=== PATIENT | male | born 1960 | race Caucasian/White ===

== ENCOUNTER 2023-02-02 08:03 | Outpatient (CLI) | payer OTHER, SELFPAY ==
--- NOTE | 2023-02-02 08:15 | MR_ITS ---
[address] [address] Phone:?[phone] Fax:?[phone] Referring Physician Information: Ino Wilson M.D. [id number] [facility] [address] Phone:?[phone] Fax:?[phone] Patient:Eddie Sandhu D.O.B:?1960 Sex:?Male Phone:?[phone] [facility] MRN:?[id number] Exam Date:?02/02/2023 EXAM: MRI of the RIGHT KNEE, without contrast CLINICAL INFORMATION: Male, 63 years old, with medial right knee pain. INDICATION: Evaluate for meniscal tear. PRIOR SURGERY: None reported. PLAIN FILMS: Knee radiograph dated 01/11/2023. COMPARISONS: No prior MRIs available. TECHNICAL INFORMATION: Using a 1.5T MR scanner and a localizing surface coil: sagittals: PD, PDFS coronals: PD, T2FS axials: PD, PDFS SEDATION: None CONTRAST: None FINDINGS: Knee joint: Effusion: Trace right knee effusion. Popliteal cyst: Tiny, unruptured popliteal (Greenberg's) cyst. Loose bodies: None. Subcutaneous and extra-articular soft tissues: Moderate edema-like signal extends from the patella to the tibial tubercle (sagittal PDFS series 6 image 16). Ligaments: ACL: Intact ACL anteromedial and posterolateral bundles, without sprain or tear. PCL: Intact PCL, without acute or chronic injury. MCL: Intact MCL superficial and deep layers, without injury. LCL: Intact LCL, without injury. Posterolateral corner: No posterolateral corner soft tissue injury. Popliteus, biceps femoris, iliotibial band, popliteofibular ligament and lateral gastrocnemius are intact. Posteromedial corner: No posteromedial corner soft tissue injury. Semimembranosus, pes anserine tendons and posterior oblique ligament are without injury, tendinopathy or bursitis. Extensor mechanism: Patellar tendon: Intact, without tendinopathy. Quadriceps tendon: Intact, without tendinopathy. Retinacula: Medial and lateral retinacula are intact. Fat pads: Unremarkable infrapatellar Hoffa's, quadriceps and prefemoral fat pads. Medial compartment: Medial meniscus: Oblique horizontal undersurface tearing of the posterior horn and body measures 2.9 cm (sagittal PDFS series 6 images 20-24 and coronal STIR series 8 images 18-21). This is associated with cystic intrasubstance degeneration at the posterior horn/body junction. No meniscal extrusion or parameniscal cyst. Medial femoral condyle & tibial plateau: Mild signal heterogeneity, surface irregularity, and thinning of the articular cartilage without full-thickness chondral loss or reactive osseous changes. Lateral compartment: Lateral meniscus: No articular surface, meniscosynovial junction or root tear. No displacement, extrusion or parameniscal cyst. Lateral femoral condyle: No chondromalacia or osteochondral abnormality. Lateral tibial plateau: Approximately 1.0 x 1.9 cm area of grade II chondromalacia involving the posterior aspect of the lateral tibial plateau, without reactive osseous changes (sagittal PD series 5 image 11 and coronal STIR series 8 image 21). Patellofemoral joint: Patella: Generalized grade 1/II chondromalacia of the patella, with minimal marginal osteophytosis. Trochlea: Broad-based grade II/III chondromalacia of the medial facet and central sulcus of the trochlea, with mild marginal osteophytosis and reactive osseous changes. Proximal tibiofibular joint: Unremarkable, without evidence of ligament sprain injury, joint effusion or adjacent marrow edema. Bones: No stress/occult fractures or other marrow edema/pathology. IMPRESSION: 1. Oblique horizontal undersurface tearing of the posterior horn/body of the medial meniscus measuring 2.9 cm, with cystic intrasubstance degeneration at the posterior horn/body junction. 2. Mild osteoarthritis of the patellofemoral compartment. 3. Trace knee joint effusion with a tiny, unruptured Greenberg cyst and moderate anterior subcutaneous soft tissue swelling. 4. Small area of grade II chondromalacia of the posterior lateral tibial plateau, without reactive osseous changes. 5. No cruciate or collateral ligament sprain/tear. 6. No lateral meniscal tear. 7. No osseous or myotendinous abnormality. BC Electronically signed on 02/05/2023 11:22:00 AM by Lenny Zhong M.D.
== END 2023-02-02 08:04 | disposition home or self-care (01) ==
PROVIDERS: PCP Family Medicine; Visit Provider Orthopaedic Surgery Sports Medicine
DX: M25.561 Pain in right knee (principal); S83.241A Other tear of medial meniscus, current injury, right knee, initial encounter; M17.11 Unilateral primary osteoarthritis, right knee; M25.461 Effusion, right knee; M94.261 Chondromalacia, right knee
CPT/HCPCS: 73721

== ENCOUNTER 2023-03-21 08:59 | Day surgery (SDC) | payer OTHER, SELFPAY ==
[2023-03-21] VITALS (12 sets, daily range): BP systolic 120–143; BP diastolic 75–97; PULSE 64–84; RESP 15–20; TEMP 36.4–36.6; O2SAT 91–97; BMI 32.8
[2023-03-21] MEDS: LACTATED RINGERS 1000 ML 1,000 ML 100 ML IV ×2 (09:30→11:40)
[2023-03-21] MEDS: SODIUM CHLORIDE 0.9 % (FLUSH) 10 ML SYRINGE IVF (09:53)
--- NOTE | 2023-03-21 10:13 | W.ANESCHARGE ---
Anesthesia Charges Start Date/Time Anesthesia Start Date: 03/21/23 Anesthesia Start Time: 10:56 Stop Date/Time Anesthesia Stop Date: 03/21/23 Anesthesia Stop Time: 11:55
[2023-03-21] MEDS: CEFAZOLIN 2 GM in 0.9 % SODIUM CHLORIDE Mini-bag 100 ML IVPB (11:00)
--- NOTE | 2023-03-21 11:00 | W.PM.H&PU ---
History & Physical Update History & Physical Update H&P Reviewed and patient assessed: No changes noted
--- NOTE | 2023-03-21 11:40 | P.ORPRC_ITS ---
Procedure Note Date of procedure: 03/21/23 Procedure: PREOPERATIVE DIAGNOSIS: 1. Right knee medial meniscus tear POSTOPERATIVE DIAGNOSIS: 1. Right knee medial meniscus tear 2. Right knee medial plica with indentation of the femur PROCEDURE: 1. Right knee arthroscopic partial medial meniscectomy 2. Right knee limited synovectomy (plica excision) SURGEON: Ino Wilson M.D. [employer]: CARLOS Bravo. Of note, an engineer assistant was critical for this case to aid in patient positioning, knee manipulation, instrument exchange, and closure. ANESTHESIA: Spinal EBL: 10 mL TOURNIQUET: 30 min at 300 torr COMPLICATIONS: None evident INDICATIONS: The patient is a pleasant 63-year-old male who has experienced right knee pain particularly with any twisting or turning. Physical exam was concerning for medial meniscus tear, this was confirmed on MRI. Additionally, attempted nonoperative management has been tried, and failed. Thus, surgery was recommended. FINDINGS: Complex tearing posterior horn to midbody medial meniscus. Grade 1-2 chondromalacia medial femoral condyle. Also grade 4 lesion in the distal femur approaching the trochlea that measured approximately 6 mm in diameter. ACL and PCL intact. Lateral meniscus intact. Healthy articular cartilage lateral compartment. Patella showed grade 2 chondromalacia across the median ridge. Large plica draped along the medial distal femur DESCRIPTION OF PROCEDURE: After a thorough discussion of risks, benefits, and alternatives, the patient was brought to the operating room and placed upon the operating table. Induction of anesthesia was undertaken as previously noted. 2g iv Ancef was administered within 1 hr of incision preoperatively. Appropriate time-out was performed identifying proper patient, site, and procedure. The right lower extremity was prepped and draped in the appropriate sterile fashion using ChloraPrep. The limb was exsanguinated and tourniquet inflated. Anterolateral and anteromedial portals were established with an 11 blade, and a diagnostic arthroscopy was performed. This identified the findings as noted above. Following the diagnostic arthroscopy, a partial medial menisectomy was performed with the combination of basket forceps and a motorized shaver. Fol lowing this, the meniscus was re-probed and found to be stable. Approximately 25-33 % of the overall meniscus required resection. In addition, the shaver was utilized for plica excision as this was taken back to the medial capsule. At this stage, the shaver was reinserted into the suprapatellar pouch and all remaining meniscal debris was evacuated. Instruments were removed, excess fluid was drained, and closure performed with 4-0 Monocryl with Steri-Strips. Dressings were applied, the tourniquet deflated, and the patient was awoken from anesthesia and transferred to the PACU in stable condition. PLAN: 1. Weightbear as tolerated operative extremity. Crutch / walker ambulation assistance PRN. 2. Ice, acetominophen and/or ibuprofen, and oxycodone for pain as needed. 3. Knee range of motion and quad sets/straight leg raise regularly 4. Follow up with PA visit in 1-2 weeks for a wound check and possibly to initiate physical therapy.
[2023-03-21] MEDS: ROPIVACAINE 0.5% 30 ML 150 MG INJECTION (11:46)
--- NOTE | 2023-03-21 12:31 | W.ANESCHARGE ---
Anesthesia Charges Start Date/Time Anesthesia Start Date: 03/21/23 Anesthesia Start Time: 10:56 Stop Date/Time Anesthesia Stop Date: 03/21/23 Anesthesia Stop Time: 11:55
--- NOTE | 2023-03-21 13:44 | SUR.PHASEII ---
pt ate yogurt and drank coffee without difficutly. Up with walker and SBA. Tolerated activity. denies pain. wheelchair out to car with .
== END 2023-03-21 13:33 | disposition home or self-care (01) ==
PROVIDERS: PCP Family Medicine; Visit Provider Orthopaedic Surgery Sports Medicine
PROC: (CPT 29870; principal; 2023-03-21 11:00)
DX: S83.231A Complex tear of medial meniscus, current injury, right knee, initial encounter (principal); M67.51 Plica syndrome, right knee
CPT/HCPCS: 29881; 29875; 01400; J0690; J1100; J2250; J2405; J2704; J2795; J3010; J7120

== ENCOUNTER → 2024-11-20 15:45 | Outpatient (RCR) | payer OTHER, SELFPAY ==
--- NOTE | 2023-06-05 15:17 | AT.DPN ---
AT Daily Progress Note AT Daily Progress Note Start: 06/05/23 14:00 Freq: Status: Active Protocol: Document 06/05/23 14:45 CMW (Rec: 06/05/23 15:07 CMW [id number]) E-signed By Tevin Prince, MS, LAT, ATC Athletic Training Daily Progress Note Visit Number/Visits Authorized Note Type Daily Note Insurance Information Insurance Name Workman's [employer] Insurance Information/Comments [employer] Claims Claim # [id number] Patient Diagnosis Treating Diagnosis & ICD Code(s) M62.551 Muscle wasting and atrophy, R thigh M62.81 Muscle weakness ( generalized) M25.561 Pain in R knee Referring Medical Provider Katie Subjective Subjective Information Patient presents 10 weeks post right knee medial meniscectomy. Patient reports his knee is frequently stiff especially if he is seated for extended periods of time. He reports his formal PT went well and he does well with his current home program. 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 No previous orthopedic surgery history prior to R knee. Patient reports job duties include sitting/driving up to 100 miles per day. Working in customer homes includes repetitive stairs, ladders, squatting and kneeling. Patient reports lifting and carrying up to 50#, frequently lifting and carrying 10-30#. Patient completed [place] Musculoskeletal Pain Screening Questionnaire with a score of 102. Scores > 105 indicate higher estimated risk for future work disability. Work Ability Index was also completed with a score of 24. This score is in the poor range indicating need for intervention for patient to return to previous work ability. Pain Rating NR, stiff Home Exercise/Activity Program Yes Compliance Current Home Program Information Previous HEP from [facility] Pertinent Objective Information Pertinent Objective Information Blood Pressure: 161/88 mmHg Pulse: 71 bpm Functional Test Performed & Score Modified Functional Movement Screen Deep Squat: 1, pt reports R knee pain. Weight shift to L side. Ankle Clearing Test L: 2 R: 1, R knee pain Lower Body Motor Control Screen Foot Length: 11 L: 19.5 R: 21 - hand support used throughout Shoulder mobility Screen Hand Length: 7.5 L: 1 R: 1 Shoulder Clearing Test L: neg R: pos Straight Leg Raise L: 1 R: 1 Modified Star Excursion Balance Test - hand support used throughout Left Anterior: 21 Posterior-Medial: 32 Posterior-Lateral: 29 Right Anterior: 24 Posterior-Medial: 33 Posterior-Lateral: 24 - patient does not demonstrate ability to load stance leg without hand support Side Plank Hold - knees at 90 degrees Left: 48 seconds Right: 29 seconds - poor lumbopelvic control. Pt reports side plank bothers his shoulders. Functional Lifting Test Waist Height: 32 [place] Height: 66 Floor to Waist: 50#, squat mechanics only. Waist to Waist: 40#, cues for pivot steps. Pt reports R knee pain at 40# Waist to [place]: 35# Two-hand Carry: 50# x 10' One-hand Carry: 25# each hand x 30' On-hand Carry with Stairs: 25# x 4 stairs Treatment Precautions/Contraindications None Interventions Provided Today Patient Instructed in Risks/Benefits & Yes Consents to Treatment Therapeutic Exercise Flowsheet No Documented Separately Untimed Code Treatment Minutes 0 Timed Code Treatment Minutes 90 Total Treatment Time (Including Timed & 90 Untimed Codes) Assessment & Plan of Care Assessment/Impression Patient presents 10 weeks post right knee medial meniscectomy. Patient presents with mildly antalgic gait, poor eccentric control when descending stairs and limited tolerance to seated position with knee flexion greater than 75 degrees. Patient was challenged with any single leg activities, needing hand support throughout these tasks . Squat pattern has significant weight shift to left side and R knee pain below 90 degrees. Patient is not able to demonstrate hinge lift pattern after demonstration and verbal cues. Developing ability to safely lift with a hinge pattern can reduce knee flexion necessary for lift. Patient would benefit from work conditioning to address R lower extremity and global deconditioning as well as low tolerance to kneeling, squatting and sitting. Goals/Functional Outcomes Improve overall strength and endurance to prepare for return to work in [employer] sales and service Improve tolerance to kneeling, deep squat and stairs related to job demands Increase tolerance to volume and frequency of stairs related to job demands Improve safe lifting mechanics including squat and hinge lifting patterns Daily Plan of Care Continue Per [facility] Welder Assistant Signature/License Tevin Prince MS, LAT, Number ATC #[id number]
== END | disposition home or self-care (01) ==
LOC: WKPLHLTH 06-05 12:27
PROVIDERS: PCP Family Medicine; Visit Provider Orthopaedic Surgery Sports Medicine
DX: M62.551 Muscle wasting and atrophy, not elsewhere classified, right thigh (principal); M62.81 Muscle weakness (generalized); M25.561 Pain in right knee; Z02.6 Encounter for examination for insurance purposes; Z98.890 Other specified postprocedural states; Z87.828 Personal history of other (healed) physical injury and trauma; Z51.89 Encounter for other specified aftercare
CPT/HCPCS: 97545; 97750